=== PATIENT | female | born 1985 | race African-American/Black ===

== ENCOUNTER 2019-07-24 11:50 | Inpatient (IN) | payer OTHER ==
[2019-07-24] MEDS ORDERED: AMPICILLIN - 2 GM in SODIUM CHLORIDE 100 ML IVPB ONE (12:00)
[2019-07-24] MEDS: OXYTOCIN 20 UNITS in 0.9% NS 20 UNIT/1,000 ML INFUS.BAG IV SCH ×2 (12:23→13:44)
[2019-07-24] MEDS ORDERED: BENZOCAINE 20% 57 GM BOTTLE TP PRN (12:50)
[2019-07-24] MEDS ORDERED: BENZOCAINE 28 GM HEMORRHOIDAL OINTMENT TP PRN (12:50)
[2019-07-24] MEDS ORDERED: BISACODYL 10 MG SUPP.RECT RC PRN (12:50)
[2019-07-24] MEDS ORDERED: METHYLERGONOVINE MALEATE 0.2 MG/1 ML AMP IM PRN (12:50)
[2019-07-24] MEDS ORDERED: WITCH HAZEL 50% (TUCKS) 40 PAD/JAR PAD TP PRN (12:50)
[2019-07-24] MEDS ORDERED: oxyCODONE HCL 5 MG TABLET PO PRN (12:50)
--- NOTE | 2019-07-24 12:57 | HP ---
Past Medical History - Admission Chief Complaint: active labor History of Present Illness: active labor, srom History Source: Patient Limitations to Obtaining History: No Limitations - Past Medical History RECOVERY ROOM NURSE: No: Alzheimer's, CVA, Dementia, Migraine, Multiple Sclerosis, Peripheral Neuropathy, Parkinson's, Seizure, Syncope, TIA, Vertigo, Other Cardiovascular: No: AFIB, Aneurysm, Aortic Insufficiency, Aortic Stenosis, CAD, CHF, Deep Vein Thrombosis, HTN, Hyperlipdemia, [place], Mitral Insufficiency, Mitral Stenosis, Murmur, Pulmonary Hypertension, Other Pulmonary: No: Asthma, Bronchitis, Cancer, COPD, O2 Dependent, Pneumonia, Previously Intubated, Pulmonary Embolus, Pulmonary Fibrosis, Sleep Apnea, Other Gastrointestinal: No: Ascites, Cancer, Constipation, Crohn's Disease, Diverticulitis, Diverticulosis, Esophageal Varices, Gastritis, GERD, GI Bleed, Hemorrhoids, Hiatal Hernia, Inflamatory Bowel Disease, Irritable Bowel Disease, Pancreatitis, Peptic Ulcer Disease, Ulcerative Colitis, Other Hepatobiliary: No: Cirrhosis, Cholelithiasis, Cholecystitis, Choledocholithiasis , Hepatitis A, Hepatitis B, Hepatitis C, Other Renal/: No: Renal Failure, Renal Inusuff, BPH, Cancer, Hematuria, Hemodialysis , Neurogenic Bladder, Renal Calculi, UTI, Other ...Para: 1 ...Term: 1 ...: 0 ... Weeks Gestation by Dates: 39 ...EDC by Dates: 07/27/19 Heme/Onc: No: Anemia, B12 Deficiency, Bleeding Disorder, Cancer, Current Chemotherapy, Current Radiation Therapy, Hemochromatosis, Hypercoaguable State, Myeloproliferative Synd, Sickle Cell Disease, Sickle Cell Trait, Thrombocytopenia, Other Infectious Disease: No: AIDS, C-Diff, Herpes Zoster, HIV, MRSA, STD's, Tuberculosis, VREF, Other Psych: No: Addictions, Anxiety, Bipolar, Depression, Panic, Psychosis, Schizophrenia, Other Musculoskeletal: No: Bursitis, Chronic low back pain, Hemiparesis, Hemiplegia, Osteoarthritis, Paraplegia, Other Rheumatology: No: Fibromyalgia, Gout, Lupus, Rheumatoid Arthritis, Sarcoidosis, Vasculitis, Other ENT: No: Allergic Rhinitis, Sinusitis, Other Endocrine: No: Tr[place]'s Disease, [place]'s Disease, Diabetes Insipidus, Diabetes Mellitus, Hyperparathyroidism, Hyperthyroidism, Hypothyroidism, Osteopenia, SIADH, Other Dermatology: No: Basal Cell, Cellulitis, Eczema, Melanoma, Psoriasis, Squamous Cell, Other - Past Surgical History Past Surgical History: No: None, AAA Repair, AICD, Amputation, Appendectomy, Arthrosocopy, AV Fistula/Graft, Bariatric Surgery, Breast Biopsy, Bypass, CABG, Carotid Endarterectomy, Cataract Removal, Cholecystectomy, Colectomy, Colonoscopy, Colostomy, Craniotomy, , Cystectomy, Hernia Repair, Hysterectomy, Ileal Conduit, Ileosotomy, Joint Replacement, Kidney Transplant, Laminectomy, Liver Transplant, Mastectomy, Nephrectomy, Oopherectomy, Orchiectomy, Permanent Pacemaker, Prostatectomy, Splenectomy, Stent, Thoracotomy , TURP, Tonsillectomy, Tubal Ligation, Upper Endoscopy, Valve Replacement, Vasectomy, Vein Stripping/Ligation Hx Myomectomy: No Hx Transabdominal Cerclage: No - Advance Directives Advance Directives: Yes: Living Will - Smoking History Smoking history: Never smoked Have you smoked in the past 12 months: No - Alcohol/Substance Use Hx Alcohol Use: No History of Substance Use: reports: None - Social History Usual Living Arrangement: Yes: With Spouse Do you think of yourself as: Straight/Heterosexual ADL: Independent History of Recent Travel: No Family Medical History Family History: Denies Review of Systems - Review of Systems Constitutional: reports: No Symptoms Eyes: reports: No Symptoms HENT: reports: No Symptoms Neck: reports: No Symptoms Cardiovascular: reports: No Symptoms Respiratory: reports: No Symptoms Gastrointestinal: reports: No Symptoms Genitourinary: reports: No Symptoms Breasts: reports: No Symptoms Reported Musculoskeletal: reports: No Symptoms Integumentary: reports: No Symptoms Neurological: reports: No Symptoms Endocrine: reports: No Symptoms Hematology/Lymphatic: reports: No Symptoms Psychiatric: reports: No Symptoms Physical Exam - Maternity Constitutional: Yes: Well Nourished, No Distress, Calm Eyes: Yes: WNL, Conjunctiva Clear, EOM Intact HENT: Yes: WNL, Atraumatic, Normocephalic Neck: Yes: WNL, Supple, Trachea Midline Cardiovascular: Yes: WNL, Regular Rate and Rhythm Lungs: Clear to auscultation Breast(s): Yes: WNL - Abdominal Exam/OB Fundal Height: 40 Number of Fetuses: Single Presentation: Vertex Contractions: Yes Regularity: Regular Intensity: Mod/Strong Monitor Mode: External Heart Rate Location: [facility] Category: I Accelerations: Uniform Decelerations: None - Vaginal Exam/OB Vaginal Bleediing: No Speculum Exam: No Dilatation (cm): 8 Effacement (%): 90 Amniotic Membrane Status: Ruptured Amniotic Fluid: Yes: Meconium Stained Meconium: Light Presentation: Vertex/Position Station: -1 - Physical Exam Musculoskeletal: Yes: WNL Extremities: Yes: WNL Edema: Yes Edema: LUE: 1+, RUE: 1+, LLE: 1+, RLE: 1+ Integumentary: Yes: WNL Deep Tendon Reflex Grade: Normal +2 ...Motor Strength: WNL Psychiatric: Yes: WNL, Alert, Oriented Assessment/Plan for , precip
--- NOTE | 2019-07-24 12:58 | PN ---
Delivery - Delivery Vaginal Delivery: No Problems Type of Anesthesia: Local Episiotomy/Laceration: 1st degree EBL (cc): 250 (precip delivery, no complications ) Delivery, Single - Stages of Labor Date 1st Stage Initiatied: 07/24/19 Date 2nd Stage Initiated: 07/24/19 Date of Delivery: 07/24/19 Date Placenta Delivered: 07/24/19 Placenta: Yes: Spontaneous - Condition of Rug Designer/Four Slide Operator Present: No Infant Gender: Female Position: Right, OA Total Hours ROM (Hrs/Mins): 1 hr - [place] Feeding Plan Initial Plan: Exclusive throughout hospitalization Benefits of Exclusively reinforced: Yes
[2019-07-24] MEDS ORDERED: DEXTROSE 5%-LACTATED RINGERS 1,000 ML IV SCH (13:00)
[2019-07-24 13:30] VITALS: BMI 26.6
[2019-07-24] MEDS ORDERED: OXYTOCIN 20 UNITS in 0.9% NS 20 UNIT/1,000 ML INFUS.BAG IV ONE (13:42)
[2019-07-24] MEDS ORDERED: ELECTROLYTE-148 SOLN 1,000 ML IV SCH (14:00)
[2019-07-24] MEDS: ACETAMINOPHEN 325 MG TABLET (FP) PO PRN (14:36)
[2019-07-24] MEDS: IBUPROFEN 600 MG TABLET (FP) PO PRN (14:36)
[2019-07-24 15:46] LABS: BASO % 0.4 % (0-2.0); HEMATOCRIT 33.9 % (32.4-45.2); HEMOGLOBIN 11.1 GM/dL (10.7-15.3); LYMPH % 8.1 % (8-40); MCH 27.7 pg (25.7-33.7); MCHC 32.7 g/dl (32.0-36.0); MEAN CELL VOLUME 84.9 fl (80-96); MONO % 6.3 % (3.8-10.2); NEUT % 85.2 % (42.8-82.8); PLATELET COUNT 168 K/MM3 (134-434); RBC 3.99 M/mm3 (3.60-5.2); RDW 15.5 % (11.6-15.6); WHITE BLOOD COUNT 10.4 K/mm3 (4.0-10.0)
[2019-07-24] MEDS ORDERED: AMPICILLIN - 1 GM in SODIUM CHLORIDE 100 ML IVPB SCH (16:00)
[2019-07-24 16:08] LABS: INR 0.93 (0.83-1.09)
[2019-07-24 16:11] LABS: ACTIVATED PTT 27.9 SECONDS (25.2-36.5); BLOOD UREA NITROGEN 7.3 mg/dL (7-18); CREATININE 0.7 mg/dL (0.55-1.3); POTASSIUM 3.7 mmol/L (3.5-5.1)
[2019-07-25 07:56] LABS: BASO % 0.3 % (0-2.0); EOS % 0.5 % (0-4.5); HEMOGLOBIN 10.3 GM/dL (10.7-15.3); LYMPH % 17.4 % (8-40); MCH 27.8 pg (25.7-33.7); MCHC 33.3 g/dl (32.0-36.0); MEAN CELL VOLUME 83.4 fl (80-96); MEAN PLT VOLUME 7.9 fl (7.5-11.1); MONO % 10.6 % (3.8-10.2); NEUT % 71.2 % (42.8-82.8); PLATELET COUNT 168 K/MM3 (134-434); RBC 3.72 M/mm3 (3.60-5.2); WHITE BLOOD COUNT 8.7 K/mm3 (4.0-10.0)
[2019-07-25] MEDS: IBUPROFEN 600 MG TABLET (FP) PO PRN (08:19)
[2019-07-25] MEDS: ACETAMINOPHEN 325 MG TABLET (FP) PO PRN (08:20)
[2019-07-25] MEDS ORDERED: SENNOSIDES/DOCUSATE COMBO (SENNA PLUS) TABLET (UD) PO PRN (22:00)
[2019-07-26] MEDS: ACETAMINOPHEN 325 MG TABLET (FP) PO PRN (01:23)
[2019-07-26] MEDS: IBUPROFEN 600 MG TABLET (FP) PO PRN (01:24)
--- NOTE | 2019-07-26 04:44 | PN ---
Post Progress Note Post Day: 2 Type of Delivery: Vital Signs: Vital Signs Temperature 97.8 F 07/25/19 20:51 Pulse Rate 74 07/25/19 20:51 Respiratory Rate 20 07/25/19 20:51 Blood Pressure 112/66 07/25/19 20:51 O2 Sat by Pulse Oximetry (%) 99 07/24/19 13:20 Breast Exam: Yes: Soft Uterus: Yes: Fundus Firm, Fundus below umbilicus, Non-tender Abdomen/GI: Yes: Abdomen soft, Passing flatus, Tolerating PO Lochia: Yes: Serosa Lochia, amount: Small Extremities: Yes: Calves non-tender Perineum: Yes: Laceration Activity: Ambulating - Labs Labs: CBC WBC 8.7 K/mm3 (4.0-10.0) 07/25/19 07:18 RBC 3.72 M/mm3 (3.60-5.2) 07/25/19 07:18 Hgb 10.3 GM/dL (10.7-15.3) L 07/25/19 07:18 Hct 31.0 % (32.4-45.2) L 07/25/19 07:18 MCV 83.4 fl (80-96) 07/25/19 07:18 MCH 27.8 pg (25.7-33.7) 07/25/19 07:18 MCHC 33.3 g/dl (32.0-36.0) 07/25/19 07:18 RDW 15.0 % (11.6-15.6) 07/25/19 07:18 Plt Count 168 K/MM3 (134-434) 07/25/19 07:18 MPV 7.9 fl (7.5-11.1) 07/25/19 07:18 Absolute Neuts (auto) 6.2 K/mm3 (1.5-8.0) 07/25/19 07:18 Neutrophils % 71.2 % (42.8-82.8) 07/25/19 07:18 Lymphocytes % 17.4 % (8-40) D 07/25/19 07:18 Monocytes % 10.6 % (3.8-10.2) H 07/25/19 07:18 Eosinophils % 0.5 % (0-4.5) D 07/25/19 07:18 Basophils % 0.3 % (0-2.0) 07/25/19 07:18 Nucleated RBC % 0 % (0-0) 07/25/19 07:18 Assessment/Plan doing well. dc pt home today
--- NOTE | 2019-07-26 04:48 | DS ---
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 Vital Signs: Vital Signs Temperature 97.8 F 07/25/19 20:51 Pulse Rate 74 07/25/19 20:51 Respiratory Rate 20 07/25/19 20:51 Blood Pressure 112/66 07/25/19 20:51 O2 Sat by Pulse Oximetry (%) 99 07/24/19 13:20 Constitutional: Yes: Well Nourished, No Distress, Calm Eyes: Yes: WNL, Conjunctiva Clear, EOM Intact HENT: Yes: WNL, Atraumatic, Normocephalic Neck: Yes: WNL, Supple, Trachea Midline Cardiovascular: Yes: WNL, Regular Rate and Rhythm Respiratory: Yes: WNL, Regular, CTA Bilaterally Gastrointestinal: Yes: WNL, Normal Bowel Sounds, Soft ...Rectal Exam: Yes: WNL Renal/: Yes: WNL Pelvis: Yes: WNL External Genitalia: Yes: Normal Internal Exam Deferred: No Vaginal Exam: Yes: Normal Cervix: Yes: Normal Uterus: Yes: Normal Adnexa: Normal: Bilateral ....Post : Yes: Uterus firm, Uterus non-tender Breast(s): Yes: WNL Musculoskeletal: Yes: WNL Extremities: Yes: WNL Edema: Yes Edema: LUE: 1+, RUE: 1+, LLE: 1+, RLE: 1+ Integumentary: Yes: WNL Wound/Incision: Yes: Clean/Dry, Well Approximated Neurological: Yes: WNL, Alert, Oriented ...Motor Strength: WNL Psychiatric: Yes: WNL, Alert, Oriented Labs: CBC, BMP 07/25/19 07:18 07/24/19 15:20 Delivery - Delivery Vaginal Delivery: No Problems Type of Anesthesia: Local Episiotomy/Laceration: 1st degree EBL (cc): 250 Delivery, Single - Stages of Labor Date 1st Stage Initiatied: 07/24/19 Time 1st Stage Initiated: 10:00 Date 2nd Stage Initiated: 07/24/19 Time 2nd Stage Initiated: 12:15 Date of Delivery: 07/24/19 Time of Delivery: 12:20 Time Placenta Delivered: 12:23 Placenta: Yes: Spontaneous - Condition of Infant Ordnance Technician/Fresh Work Wrapper Layer Present: No Infant Gender: Female Weight: 3.487 kg Position: Right, OA Total Hours ROM (Hrs/Mins): 2hrs 23min - 1 Minute Total Score: 9 5 Minutes Total Score: 9 - [place] Feeding Plan Initial Plan: Exclusive throughout hospitalization Benefits of Exclusively reinforced: Yes Discharge Summary Problems reviewed: Yes Reason For Visit: LABOR Procedures: Principal: Other Procedures: none Hospital Course: unevntful Health Concerns: none Plan of Treatment: oob as much as possible Condition: Good - Instructions Diet, Activity, Other Instructions: regular diet, routine post care Disposition: HOME - Home Medications Comprehensive Discharge Medication List: Ambulatory Orders Vitamins (Sjr) - 1 tab PO DAILY 07/24/19 Prescription Drug Monitoring Program (I-STOP) results: I-STOP reviewed and no issues identified
[2019-07-26 10:04] VITALS: BP 111/69; PULSE 73; TEMP 98.2
== END 2019-07-26 15:10 | disposition home or self-care (01) | DRG 807 ==
LOC: JLDR 11:50 → J3W 14:00
PROVIDERS: ADMIT Obstetrics & Gynecology; ATTEND Obstetrics & Gynecology
PROC: 10E0XZZ Delivery of Products of Conception, External Approach (ICD-10-PCS; principal; 2019-07-24)
PROC: 0HQ9XZZ Repair Perineum Skin, External Approach (ICD-10-PCS; 2019-07-24)
PROC: 0W8NXZZ Division of Female Perineum, External Approach (ICD-10-PCS; 2019-07-24)
DX: O70.0 First degree perineal laceration during delivery (principal); Z37.0 Single live birth; Z3A.39 39 weeks gestation of pregnancy
CPT/HCPCS: 36415; 59409; 80048; 85025; 85610; 85730; 86593; 86850; 86900; 86901